=== PATIENT | female | born 1985 | race Hispanic/Latino ===

== ENCOUNTER 2016-11-23 08:13 | Outpatient (CLI) | payer OTHER ==
--- NOTE | 2016-11-23 11:20 | Ultrasound Report ---
ABDOMINAL ULTRASOUND: 11/23/16 08:13:00 CLINICAL: Acute abdominal pain. FINDINGS: High-resolution ultrasound demonstrated a normal liver with normal size, contour and echogenicity. No liver mass. Normal hepatic vasculature and inferior vena cava. A partially contracted gallbladder with no stones. The gall bladder wall measures 1.2 mm in thickness. Normal bile ducts with the CBD measuring 5.2 mm diameter. The pancreas was is fairly well imaged and normal except for the tail which is shattered by gas. Normal abdominal aorta. A normal spleen measures 10.0cm. Normal kidneys with normal non-dilated renal collecting systems and ureters. The right kidney measures 9.5 x 4.8 x 4.1cm. The left kidney measures 10.1 x 5.4 x 4.5cm. No renal mass or calculus. No ascites or mass. IMPRESSION: Normal abdomen. No cholelithiasis.
== END 2016-11-23 08:14 | disposition home or self-care (01) ==
LOC: SPVWC 08:13
PROVIDERS: ATTEND Internal Medicine
DX: K82.0 Obstruction of gallbladder (principal)
CPT/HCPCS: 76700